=== PATIENT | male | born 1995 | race Two or more races ===

== ENCOUNTER 2018-07-03 02:10 | Emergency (ER) | payer OTHER, SELFPAY ==
[2018-07-03 02:12] VITALS: BP 105/63; PULSE 84; RESP 18; TEMP 36.6; O2SAT 95; BMI 30.1
[2018-07-03 02:34] VITALS: BP 89/61; PULSE 74; RESP 16; O2SAT 98
--- NOTE | 2018-07-03 02:55 | ED.DCSUM_ITS ---
- ER Visit Summary Date of Service: 07/03/18 Chief Complaint: Acute alcohol intoxication History of Present Illness: The patient is a 22 M who presents for acute alcohol intoxication. Patient states he drank a lot. He is complaining of nausea and has been vomiting. He denies any trauma, head pain, neck pain, back pain, or any other injuries. He denies any medical history or medication use. He denies any drug use or tobacco use tonight. Physical Examination: Vital signs: afebrile, hemodynamically stable, no hypoxia on room air General: well nourished, well developed, mildly somnolent withdrawal on his chest Skin: warm, dry, no rash, no pallor HEENT: normocephalic and atraumatic, nontender scalp, no evidence of trauma; PERRL, EOMI, mild conjunctival injection, moist mucous membranes, neck is supple with full active range of motion, no midline tenderness deformities or step-offs Cardiovascular: regular rate and rhythm without murmurs, no peripheral edema, 2 + pulses all distal extremities Respiratory: No increased work of breathing, lungs are clear to auscultation bilaterally, no rales, rhonchi or wheezing Abdominal: Abdomen is soft, nontender with normoactive bowel sounds, no guarding or rebound, no masses MSK: Moves all extremities, no deformities, normal strength Neuro: Awake and alert, oriented ?4. No facial droop, sensation and motor function intact and symmetric Test Results: [] Emergency Department Course and Treatment: Patient was given IV fluids and Zofran for nausea, as he vomited in the emergency department. He is maintaining his own airway. He will be observed for a period of time until clinically sober and then discharged back to [facility]. After prolonged period of observation during which patient slept, he was awakened and reevaluated. Patient was able to ambulate to the bathroom without any difficulty. He is still quite somnolent but is not having any nausea or vomiting any longer . Because he is still somnolent, he will be transported by [facility] to the [facility] center for observation until he is more awake and able to safely go home. Treatment Plan: [] Disposition: [] Impression: Acute alcohol intoxication This note was generated with [employer] software. It may contain incorrect words, spelling, and punctuation that were not noted in review of the chart prior to signing ED Disposition - Plan for ED Patient: Disposition: Home or Assisted Living Chief Complaint: ETOH Intox Instructions: ED Overdose Alcohol Referrals: Care Physician,No Primary [Primary Care Provider] - Additional Instructions: You will be transported to the [facility] for observation until you are deemed well enough to go home.
[2018-07-03] MEDS: Ondansetron 4 MG/2 ML Vial IV (03:01)
[2018-07-03] MEDS: 0.9% Normal Saline 1,000 ML 999 ML IV (03:07)
[2018-07-03 05:30] VITALS: BP 99/52; RESP 16; O2SAT 94
--- NOTE | 2018-07-03 07:11 | ED.RN ---
REPORT CALLED TO ROSANNA AT [facility]. [facility]
--- NOTE | 2018-07-03 07:21 | DCINST.ED_ITS ---
ED Disposition - Plan for ED Patient: Disposition: Home or Assisted Living Chief Complaint: ETOH Intox Instructions: ED Overdose Alcohol Referrals: Care Physician,No Primary [Primary Care Provider] - Additional Instructions: You will be transported to the [facility] for observation until you are deemed well enough to go home.
== END 2018-07-03 07:52 | disposition home or self-care (01) ==
PROVIDERS: Emergency Provider Emergency Medicine
DX: F10.129 Alcohol abuse with intoxication, unspecified (principal); Y90.9 Presence of alcohol in blood, level not specified
CPT/HCPCS: 96361; 96374; 99285; J7030; A4216; J2405